=== PATIENT | female | born 1935 | race Caucasian/White ===

== ENCOUNTER 2017-04-26 07:42 | Day surgery (SDC) | payer OTHER ==
[~2017-04-26] VITALS: Ht 157.5 cm; Wt 63.7 kg
[~2017-04-26 07:42] MED LIST: AMLO5TAB2 PO; ASPI325T PO; BENI40TA5 PO; CRAN1TAB5 PO; LISI-515 PO; MONT10TA2 PO; SITA1TAB2 PO; VITA1000 PO
[2017-04-26] MEDS ORDERED: POVIDONE IODINE 5% (ANTISEPSIS KIT) 4 APPLICATIONS EACH NARE PRN (08:15)
[2017-04-26] MEDS ORDERED: INSULIN HUMAN REGULAR 1,000 UNITS/10 ML VIAL SQ PRN (08:15)
[2017-04-26] MEDS ORDERED: LACTATED RINGER'S 1000 ML IV PRN (08:15)
[2017-04-26] MEDS ORDERED: CHLORHEXIDINE GLUCONATE 2 % 1 PACK (2 CLOTHS) TOPICAL PRN (08:15)
[2017-04-26] MEDS ORDERED: METOPROLOL TARTRATE 25 MG TAB PO PRN (08:15)
[2017-04-26] MEDS ORDERED: SODIUM CHLORID 0.9% 500 ML IV PRN (08:15)
[2017-04-26] MEDS ORDERED: ATEN25TA PO (08:24)
[2017-04-26 08:30] VITALS: BP 154/69; PULSE 79; RESP 20; TEMP 97.7; O2SAT 95
[2017-04-26] MEDS ORDERED: ONDANSETRON HCL 4 MG/2 ML VIAL IV PUSH ONE (09:00)
[2017-04-26] MEDS ORDERED: IOHEXOL 300 MG/ML 50 ML BTL (for RAD DIAG) ONE ×2 (09:00→11:10)
[2017-04-26] MEDS ORDERED: ePHEDrine/NS 25 MG/5 ML SYR IV ONE (09:00)
[2017-04-26] MEDS ORDERED: PROPOFOL 200 MG/20 ML AMP IV ONE (09:00)
[2017-04-26 09:05] LABS: AUTOMATED NEUTROPHIL # 2.9 TH/MM3 (1.8-7.7); BASOPHIL % 0.6 % (0.0-2.0); EOSINOPHIL # 0.2 TH/MM3 (0-0.4); EOSINOPHIL % 2.4 % (0.0-4.0); HEMO FLAGS DIFF FINAL; LYMPH % 51.7 % (9.0-44.0); LYMPHOCYTE # 4.3 TH/MM3 (1.0-4.8); MEAN CELL VOLUME 91.4 FL (80.0-100.0); MEAN CORPUSCULAR HEMOGLOBIN 30.9 PG (27.0-34.0); MEAN CORPUSCULAR HGB CONC 33.8 % (32.0-36.0); MONO % 10.5 % (0.0-8.0); NEUT % 34.8 % (16.0-70.0); PLATELET COUNT 253 TH/MM3 (150-450); RED CELL DISTRIBUTION WIDTH 12.8 % (11.6-17.2); WHITE BLOOD COUNT 8.2 TH/MM3 (4.0-11.0)
[2017-04-26 09:24] LABS: APTT (PATIENT) 23.7 SEC (24.3-30.1); PROTHROMBIN TIME - PATIENT 10.9 SEC (9.8-11.6)
[2017-04-26 09:26] LABS: BICARBONATE 24.7 MEQ/L (21.0-32.0)
[2017-04-26] MEDS ORDERED: HEPARIN SODIUM - SQ 10,000 UNITS/ML VIAL ONE (10:06)
[2017-04-26] MEDS ORDERED: PROTAMINE SULFATE 50 MG/5 ML VIAL ONE (10:07)
[2017-04-26] MEDS ORDERED: HEPARIN SODIUM - IV 10,000 UNITS/10 ML VIAL ONE (10:07)
[2017-04-26] MEDS ORDERED: MIDAZOLAM HCL 2 MG/2 ML VIAL ONE (10:17)
[2017-04-26] MEDS ORDERED: BUPIVACAINE/EPINEPHRINE 0.5% PF 30 ML VIAL INFIL ONE (10:56)
[2017-04-26] MEDS ORDERED: DO NOT ADM ANY ANTICOAGULANT DRUGS PRN (12:19)
[2017-04-26] MEDS ORDERED: *ONDANSETRON 4 MG VIAL PERIprocedural Use ONLY ONE (13:13)
[2017-04-26] MEDS ORDERED: LIDOCAINE HCL 1% 20 ML VIAL INFIL ONE (14:00)
[2017-04-26] MEDS ORDERED: SODIUM CHLOR 0.9% 250 ML INJ 250 ML IV ONE (14:00)
[2017-04-26] MEDS ORDERED: SODIUM CHLORIDE 0.9% FLUSH 10 ML FLUSH IV FLUSH PRN (14:00)
[2017-04-26] MEDS ORDERED: ATROPINE SULFATE 1 MG/ML VIAL IV PUSH PRN (14:00)
[2017-04-26] MEDS ORDERED: LORazepam 2 MG/ML VIAL IV PUSH PRN (14:00)
[2017-04-26] MEDS ORDERED: SODIUM CHLOR 0.9% 1000 ML INJ 1,000 ML IV SCH (14:00)
[2017-04-26] MEDS ORDERED: NITROPRUSSIDE 50 MG/D5W 250 ML IV PRN ×2 (14:15)
[2017-04-26] MEDS ORDERED: METOCLOPRAMIDE HCL 10 MG/2 ML VIAL IV PUSH PRN (14:15)
[2017-04-26] MEDS ORDERED: cloNIDine HCL 0.1 MG TAB PO PRN (14:15)
[2017-04-26] MEDS ORDERED: LABETALOL HCL 100 MG/20 ML VIAL IV PUSH PRN (14:15)
[2017-04-26] MEDS ORDERED: ONDANSETRON HCL 4 MG/2 ML VIAL IV PUSH PRN (14:15)
[2017-04-26] MEDS ORDERED: ENALAPRILAT 1.25 MG/ML VIAL IV PUSH PRN (14:15)
[2017-04-26] MEDS ORDERED: POTASSIUM CHLORIDE 20 MEQ CONTROLLED RELEASE TAB PO PRN (14:15)
--- NOTE | 2017-04-26 18:00 | EKG ---
Date Performed: 04/26/2017 Time Performed: 08:54:20 PTAGE: 81 years EKG: Sinus rhythm MINIMAL ST DEPRESSION BORDERLINE ECG PREVIOUS TRACING : 12/19/2015 12.47 Compared to prior tracing no significant change DOCTOR: Jj Reeves Interpretating Date/Time 04/26/2017 17:59:34
[2017-04-26 20:18] VITALS: BP 127/62; PULSE 80; RESP 16; TEMP 98.6; O2SAT 98
[2017-04-26] MEDS ORDERED: SODIUM CHLORIDE 0.9% FLUSH 10 ML FLUSH IV FLUSH SCH (21:00)
[2017-04-27] MEDS ORDERED: ASPIRIN EC 81 MG TABEC PO SCH (09:00)
--- NOTE | 2017-04-29 13:02 | MP ---
cc: SERGEI LAWSON,ROSALINDA DATE OF SURGERY 04/26/2017 PREOPERATIVE DIAGNOSIS Disabling left lower extremity ischemia. POSTOPERATIVE DIAGNOSIS Disabling left lower extremity ischemia. OPERATIVE PROCEDURE Left superficial femoral and popliteal percutaneous balloon angioplasty. SURGEON Sergei Lawson MD ANESTHESIA Local MAC DESCRIPTION OF PROCEDURE With the patient in the supine position and under IV sedation, the lower abdomen, both groins and thighs were prepped with Betadine and draped in a sterile fashion. No antibiotic prophylaxis was indicated. Following a protocol time-out, the skin and subcutaneous tissue overlying the proposed right common femoral access site was infiltrated with 0.5% Marcaine with epinephrine. An 18 gauge needle was inserted into the right mid common femoral lumen and a J-wire advanced under fluoroscopic guidance into the external iliac artery. A 5-Bolivian hemostatic sheath was deployed over the J-wire. An advantage guidewire Omni catheter combination was guided into the subrenal aorta, over the aortic bifurcation into the left femoral artery. The 5-Bolivian hemostatic sheath was exchanged for a 6-Bolivian sheath which was guided into the left common femoral lumen. The patient was systemically heparinized with 5000 units. Diluted contrast was injected through the sheath side-arm in conjunction with digital C-arm fluoroscopic imaging confirming diffuse stenosis within the distal SFA beginning at the abductor level and extending into the above-knee popliteal. A short segmental occlusion of the above knee popliteal was confirmed. Perigeniculate collaterals reconstituted the popliteal below the knee. The anterior tibial was patent from its origin to the dorsalis pedis. The peroneal was patent from its origin to the mid calf level, but occluded beyond. The posterior tibial was occluded throughout. The Advantage guidewire supported by a Quick-Cross catheter was easily negotiated across the distal SFA stenosis and popliteal occlusion. The stenosis and occlusion were initially balloon angioplastied with a 4 x 120 plain balloon inflated to 6 atmospheres, two separate inflations of two minutes each followed by a 4 x 120 mm drug coated balloon inflated to 6 atmospheres, 3-minute inflation. Completion angiogram revealed no residual stenosis at the angioplasty site and rapid flow distally with no distal technical defects. The long 6-Bolivian sheath was exchanged for a short 6-Bolivian sheath which was secured with a skin suture. Heparin was not reversed. The patient returned to the recovery room in stable condition having tolerated procedure well. MD GLADYS Stevens/ESTELLE /5:41 PM /1:00 PM
== END 2017-04-26 20:18 | disposition home or self-care (01) ==
LOC: HCVO 07:42
PROVIDERS: ATTEND Surgery Vascular Surgery
DX: I99.8 Other disorder of circulatory system (principal); M79.662 Pain in left lower leg; R53.83 Other fatigue; I10 Essential (primary) hypertension; E78.00 Pure hypercholesterolemia, unspecified; E11.9 Type 2 diabetes mellitus without complications
CPT/HCPCS: 01440; 37224; 75710; 80048; 85025; 85347; 85610; 85730; 93005; C1725; C1769; C2623; J1644; J2250; J2405; J2720; J3010; J7120; Q9967